=== PATIENT | female | born 1990 | race American Indian/Alaskan Native ===

== ENCOUNTER 2017-12-28 12:25 | Observation (INO) | payer MEDICAID, OTHER ==
[2017-12-28 14:46] LABS: Basophils # (Auto) 0.1 K/mm3 (0.0-0.1); Basophils % (Auto) 0.6 % (0.0-1.8); Eosinophils # (Auto) 0.2 K/mm3 (0.0-0.4); Eosinophils % (Auto) 1.6 % (0.0-4.3); Hematocrit 37.2 % (30.3-42.9); Hemoglobin 11.9 gm/dl (10.1-14.3); Lymphocytes # (Auto) 2.9 K/mm3 (1.2-5.4); Lymphocytes % (Auto) 30.8 % (13.4-35.0); Mean Corpuscular HGB Conc 32 % (30-34); Mean Corpuscular Hemoglobin 27 pg (28-32); Mean Corpuscular Volume 85 fl (79-97); Monocytes # (Auto) 0.7 K/mm3 (0.0-0.8); Monocytes % (Auto) 7.2 % (0.0-7.3); Platelet Count 245 K/mm3 (140-440); Red Blood Count 4.39 M/mm3 (3.65-5.03); Red Cell Distribution Width 14.6 % (13.2-15.2)
[2017-12-28] MEDS ORDERED: METHOTREXATE IM ONE (15:00)
[2017-12-28 15:10] LABS: Alanine Aminotransferase 23 units/L (7-56); BUN/Creatinine Ratio 12; Blood Urea Nitrogen 7 mg/dL (7-17); Calcium 9.3 mg/dL (8.4-10.2); Hemolysis Index 23
[2017-12-28 16:55] VITALS: BP 117/61
--- NOTE | 2017-12-28 16:56 | Short Stay Summary ---
Short Stay Documentation Date of service: 12/28/17 Narrative H&P: Patient was admitted for Methotrexate therapy d/t (L) ectopic LMP (date): 11/04/2017 Past Medical History: Negative Past Medical History Past Surgical History: x 2 Current Allergies: No known allergies Infection History HIV Risk Eval: no Hep B Immunized: no TB exposure: no Personal hx. of genital herpes: no Partner hx. of genital herpes: no Rash/viral illness since LMP: no Hx of STD: chlamydia Social Hx: Patient is single no e/t/d Smoking History: Patient has never smoked. - History Principal diagnosis: (L) ectopic - Allergies and Medications Current Medications: Allergies No Known Allergies Allergy (Verified 12/03/14 12:58) Home Medications Medication Instructions Recorded Confirmed Last Taken Type Vit 90/Iron Fum/Folic 1 each PO QDAY 10/12/13 04/18/14 04/16/14 History [ Formula] Acetaminophen [Acetaminophen TAB] 1,000 mg PO Q6HR 01/25/14 04/18/14 01/22/14 15 :00 History 1000 Cephalexin [Keflex] 250 mg PO Q6H #28 capsule 04/22/14 Unknown Rx Ondansetron [Zofran ODT TAB] 4 mg PO Q6H #14 tab.rapdis 08/19/14 Unknown Rx Meclizine [Antivert] 25 mg PO TID PRN #30 tablet 12/03/14 Unknown Rx Prednisone [predniSONE 5 mg (6-Day 5 mg PO .TAPER #1 tab.ds.pk 12/03/14 Unknown Rx Pack, 21 Tabs)] Cyclobenzaprine [Flexeril] 10 mg PO TID PRN #30 tablet 08/30/16 Unknown Rx Ibuprofen [Motrin 800 MG tab] 800 mg PO TID PRN #30 tablet 08/30/16 Unknown Rx - Disposition Condition at discharge: Good Disposition: DC-01 TO HOME OR SELFCARE - Discharge Diagnoses (1) Ectopic Status: Acute Qualifiers: Location of ectopic : tubal Intrauterine status: without intrauterine Laterality: left Qualified Code(s): O00.102 - Left tubal without intrauterine Short Stay Discharge Plan Activity: other (No sex, no driving, stay at your home, have an adult available at all times who can drive you to the hospital ) Weight Bearing Status: Weight Bear as Tolerated Diet: regular (Do not take PNV) Additional Instructions: Return to [facility] on Monday12/31/2017 for QBHCG Follow up with: PILI FOY MD [Staff Physician] - 01/01/18 9:00 am ([place])
== END 2017-12-28 17:35 | disposition home or self-care (01) ==
LOC: UNDOADMOB 12:25 → 3A 12:25 → OB 13:15
PROVIDERS: ADMIT Obstetrics & Gynecology; ATTEND Obstetrics & Gynecology
DX: O00.102 Left tubal pregnancy without intrauterine pregnancy (principal); O34.219 Maternal care for unspecified type scar from previous cesarean delivery; O99.213 Obesity complicating pregnancy, third trimester; E66.9 Obesity, unspecified; Z68.42 Body mass index [BMI] 45.0-49.9, adult; Z3A.39 39 weeks gestation of pregnancy
CPT/HCPCS: 36415; 80053; 84702; 85025; 86850; 86900; 86901; 96372; G0378; G0379; J9260

== ENCOUNTER 2017-12-31 14:27 | Emergency (ER) | payer MEDICAID ==
[2017-12-31 14:36] VITALS: BP 132/82
--- NOTE | 2017-12-31 14:48 | Emergency Department Report ---
ED General Adult HPI - General Chief complaint: Medical Clearance Stated complaint: BLOODWORK Time Seen by Provider: 12/31/17 14:38 Source: patient Mode of arrival: Ambulatory Limitations: No Limitations - History of Present Illness Initial comments: Patient is 27 years old female with recent diagnosis of ectopic . Patient was seen by Dr. Mauricio and advised to follow up in 2 days for repeat hCG level. Patient had methotrexate injection [address] Mauricio office. Chin today denying any new symptoms specifically she denied any abdominal pain, vaginal bleeding, dizziness, shortness of breath, nausea or vomiting. - Related Data Home Medications Medication Instructions Recorded Confirmed Last Taken Vit 90/Iron Fum/Folic 1 each PO QDAY 10/12/13 04/18/14 04/16/14 [ Formula] Acetaminophen [Acetaminophen TAB] 1,000 mg PO Q6HR 01/25/14 04/18/14 01/22/14 15 :00 1000 Previous Rx's Medication Instructions Recorded Last Taken Type Cephalexin [Keflex] 250 mg PO Q6H #28 capsule 04/22/14 Unknown Rx Ondansetron [Zofran ODT TAB] 4 mg PO Q6H #14 tab.rapdis 08/19/14 Unknown Rx Meclizine [Antivert] 25 mg PO TID PRN #30 tablet 12/03/14 Unknown Rx Prednisone [predniSONE 5 mg (6-Day 5 mg PO .TAPER #1 tab.ds.pk 12/03/14 Unknown Rx Pack, 21 Tabs)] Cyclobenzaprine [Flexeril] 10 mg PO TID PRN #30 tablet 08/30/16 Unknown Rx Ibuprofen [Motrin 800 MG tab] 800 mg PO TID PRN #30 tablet 08/30/16 Unknown Rx Allergies Allergy/AdvReac Type Severity Reaction Status Date / Time No Known Allergies Allergy Verified 12/03/14 12:58 ED Review of Systems ROS: Stated complaint: BLOODWORK Other details as noted in HPI Comment: All other systems reviewed and negative Constitutional: denies: chills Respiratory: denies: cough, orthopnea, shortness of breath, SOB with exertion Cardiovascular: denies: chest pain, palpitations, dyspnea on exertion Gastrointestinal: denies: abdominal pain, nausea, vomiting, diarrhea Neurological: denies: headache, weakness, numbness ED Past Medical Hx - Past Medical History Hx Hypertension: No Hx Congestive Heart Failure: No Hx Diabetes: No Hx Deep Vein Thrombosis: No Hx GERD: No Hx Renal Disease: No Hx Sickle Cell Disease: No Hx Seizures: No Hx Asthma: No Hx COPD: No Hx HIV: No - Surgical History Additional Surgical History: csection x 2 - Social History Smoking Status: Never Smoker Substance Use Type: None - Medications Home Medications: Home Medications Medication Instructions Recorded Confirmed Last Taken Type Vit 90/Iron Fum/Folic 1 each PO QDAY 10/12/13 04/18/14 04/16/14 History [ Formula] Acetaminophen [Acetaminophen TAB] 1,000 mg PO Q6HR 01/25/14 04/18/14 01/22/14 15 :00 History 1000 Cephalexin [Keflex] 250 mg PO Q6H #28 capsule 04/22/14 Unknown Rx Ondansetron [Zofran ODT TAB] 4 mg PO Q6H #14 tab.rapdis 08/19/14 Unknown Rx Meclizine [Antivert] 25 mg PO TID PRN #30 tablet 12/03/14 Unknown Rx Prednisone [predniSONE 5 mg (6-Day 5 mg PO .TAPER #1 tab.ds.pk 12/03/14 Unknown Rx Pack, 21 Tabs)] Cyclobenzaprine [Flexeril] 10 mg PO TID PRN #30 tablet 08/30/16 Unknown Rx Ibuprofen [Motrin 800 MG tab] 800 mg PO TID PRN #30 tablet 08/30/16 Unknown Rx ED Physical Exam - General Limitations: No Limitations General appearance: alert, in no apparent distress - Head Head exam: Present: atraumatic, normocephalic, normal inspection - Eye Eye exam: Present: normal appearance, PERRL - ENT ENT exam: Present: normal exam, normal orophraynx, mucous membranes moist - Neck Neck exam: Present: normal inspection, full ROM. Absent: tenderness, meningismus - Respiratory Respiratory exam: Present: normal lung sounds bilaterally. Absent: respiratory distress, wheezes, rales, rhonchi - Cardiovascular Cardiovascular Exam: Present: regular rate, normal heart sounds. Absent: normal rhythm, bradycardia, tachycardia - GI/Abdominal GI/Abdominal exam: Present: soft, normal bowel sounds. Absent: distended, tenderness, guarding, rebound, rigid, organomegaly, mass, bruit, pulsatile mass - Extremities Exam Extremities exam: Present: normal inspection, full ROM, normal capillary refill - Back Exam Back exam: Present: normal inspection, full ROM. Absent: tenderness, CVA tenderness (R), CVA tenderness (L), muscle spasm, paraspinal tenderness, vertebral tenderness - Neurological Exam Neurological exam: Present: alert, oriented X3, CN II-XII intact, normal gait - Skin Skin exam: Present: warm, intact, normal color ED Course Vital Signs 12/31/17 14:34 Temperature 98.7 F Pulse Rate 96 H Respiratory 16 Rate Blood Pressure 132/82 O2 Sat by Pulse 99 Oximetry ED Medical Decision Making - Medical Decision Making I discussed the patient is Dr. Mauricio, Dr. Mauricio stated that patient can go home and follow-up as Dr. Abbasi tomorrow as a schedule. Critical care attestation.: If time is entered above; I have spent that time in minutes in the direct care of this critically ill patient, excluding procedure time. ED Disposition Clinical Impression: Ectopic Disposition: DC-01 TO HOME OR SELFCARE Is pt being admited?: No Condition: Stable Instructions: Ectopic (ED)
== END 2017-12-31 15:45 | disposition home or self-care (01) ==
LOC: ED 14:27
DX: O00.90 Unspecified ectopic pregnancy without intrauterine pregnancy (principal); Z3A.00 Weeks of gestation of pregnancy not specified
CPT/HCPCS: 36415; 84702

== ENCOUNTER 2018-01-03 12:14 | Outpatient (CLI) | payer MEDICAID | END 2018-01-03 12:15 | disposition home or self-care (01) | LOC: LAB 12:14 | PROVIDERS: ATTEND Obstetrics & Gynecology | DX: N92.6 Irregular menstruation, unspecified (principal) | CPT/HCPCS: 36415; 84702 ==

== ENCOUNTER 2018-01-15 12:30 | Emergency (ER) | payer MEDICAID ==
[2018-01-15 13:26] LABS: Basophils # (Auto) 0.1 K/mm3 (0.0-0.1); Basophils % (Auto) 0.9 % (0.0-1.8); Eosinophils # (Auto) 0.2 K/mm3 (0.0-0.4); Eosinophils % (Auto) 2.3 % (0.0-4.3); Hematocrit 36.8 % (30.3-42.9); Hemoglobin 12.1 gm/dl (10.1-14.3); Lymphocytes # (Auto) 2.3 K/mm3 (1.2-5.4); Lymphocytes % (Auto) 26.4 % (13.4-35.0); Mean Corpuscular HGB Conc 33 % (30-34); Mean Corpuscular Hemoglobin 27 pg (28-32); Mean Corpuscular Volume 84 fl (79-97); Monocytes # (Auto) 0.6 K/mm3 (0.0-0.8); Monocytes % (Auto) 7.2 % (0.0-7.3); Platelet Count 310 K/mm3 (140-440); Red Cell Distribution Width 14.8 % (13.2-15.2)
[2018-01-15 13:58] LABS: Alanine Aminotransferase 19 units/L (7-56); Albumin 3.7 g/dL (3.9-5); BUN/Creatinine Ratio 14; Blood Urea Nitrogen 7 mg/dL (7-17); Hemolysis Index 3
--- NOTE | 2018-01-15 14:10 | Ultrasound Report ---
ULTRASOUND OB LESS THAN 14 WEEKS ULTRASOUND OB TRANSVAGINAL HISTORY: Abdominal pain during , history of ectopic and methotrexate treatment. COMPARISON: No relevant comparison. TECHNIQUE: Transabdominal and transvaginal ultrasound with color doppler interrogation. FINDINGS: History of ectopic at an outlying facility is given. No radiographic confirmation is presented. The uterus measures 11 x 7 x 7 cm. The endometrial stripe measures 11 mm. The right ovary is within normal limits. A small gestational sac containing a pole and yolk sac is identified in the left adnexal region. This may be within the left fallopian tube filled. No heart rate is detected. Estimated age on ultrasound is 7 weeks, 1 day. Small fluid containing debris is noted in the cul-de-sac. IMPRESSION: Left adnexal ectopic without cardiac activity is identified.
[2018-01-15 16:17] LABS: Bilirubin,Urine NEG (Negative); Blood,Urine NEG (Negative); Mucus,Urine 3+ /HPF
--- NOTE | 2018-01-15 16:17 | Emergency Department Report ---
ED Female HPI - General Chief complaint: Abdominal Pain Stated complaint: BACK/ABDOMINAL PAIN Time Seen by Provider: 01/15/18 14:10 Source: patient Mode of arrival: Ambulatory Limitations: No Limitations - History of Present Illness Initial comments: This is a 27-year-old with a recently diagnosed ectopic that has been treated with methotrexate 2 weeks ago who states that last night she was in her usual state of health without any complaints and sneezed suddenly. She reports that she then began to feel pain in her lower abdomen. She denies any nausea vomiting diarrhea chest pain or fever. She states that it felt like she was going into labor. She tried to have a bowel movement but was unsuccessful. She states that her last bowel movement has been roughly 3 days ago. She admits that she might be constipated. She is also concerned about the ectopic . Her quantitative hCG has been trending downwards according to her. She was offered surgery to resolve the ectopic but decided with her COREMAKER that she would talk to not do this at this time. She states that the pain is worse with movement. When she is laying still the pain in her lower abdomen is much better. She denies any kind of discharge at this time. -: Sudden, days(s) (1) Radiation: non-radiating Severity: moderate Severity scale (0 -10): 8 Quality: sharp Consistency: intermittent Improves with: other (rest) Worsens with: movement Are you Now?: Yes (ectopic) Associated Symptoms: denies other symptoms - Related Data Sexually active: Yes Home Medications Medication Instructions Recorded Confirmed Last Taken Vit 90/Iron Fum/Folic 1 each PO QDAY 10/12/13 04/18/14 04/16/14 [ Formula] Acetaminophen [Acetaminophen TAB] 1,000 mg PO Q6HR 01/25/14 04/18/14 01/22/14 15 :00 1000 Previous Rx's Medication Instructions Recorded Last Taken Type Cephalexin [Keflex] 250 mg PO Q6H #28 capsule 04/22/14 Unknown Rx Ondansetron [Zofran ODT TAB] 4 mg PO Q6H #14 tab.rapdis 08/19/14 Unknown Rx Meclizine [Antivert] 25 mg PO TID PRN #30 tablet 12/03/14 Unknown Rx Prednisone [predniSONE 5 mg (6-Day 5 mg PO .TAPER #1 tab.ds.pk 12/03/14 Unknown Rx Pack, 21 Tabs)] Cyclobenzaprine [Flexeril] 10 mg PO TID PRN #30 tablet 08/30/16 Unknown Rx Ibuprofen [Motrin 800 MG tab] 800 mg PO TID PRN #30 tablet 08/30/16 Unknown Rx HYDROcodone/ACETAMINOPHEN [[place] 1 each PO TID #10 tablet 01/15/18 Unknown Rx 5-325 Tablet] Allergies Allergy/AdvReac Type Severity Reaction Status Date / Time No Known Allergies Allergy Verified 12/03/14 12:58 ED Review of Systems ROS: Stated complaint: BACK/ABDOMINAL PAIN Other details as noted in HPI Comment: All other systems reviewed and negative Constitutional: see HPI Eyes: as per HPI ENT: as per HPI Respiratory: see HPI Cardiovascular: as per HPI Endocrine: see HPI Gastrointestinal: as per HPI Genitourinary: as per HPI Musculoskeletal: as per HPI Skin: as per HPI Neurological: as per HPI Psychiatric: as per HPI Hematological/Lymphatic: as per HPI ED Past Medical Hx - Past Medical History Hx Hypertension: No Hx Congestive Heart Failure: No Hx Diabetes: No Hx Deep Vein Thrombosis: No Hx GERD: No Hx Renal Disease: No Hx Sickle Cell Disease: No Hx Seizures: No Hx Asthma: No Hx COPD: No Hx HIV: No - Surgical History Hx Cholecystectomy: Yes Additional Surgical History: csection x 2 - Social History Smoking Status: Current Every Day Smoker Substance Use Type: None - Medications Home Medications: Home Medications Medication Instructions Recorded Confirmed Last Taken Type Vit 90/Iron Fum/Folic 1 each PO QDAY 10/12/13 04/18/14 04/16/14 History [ Formula] Acetaminophen [Acetaminophen TAB] 1,000 mg PO Q6HR 01/25/14 04/18/14 01/22/14 15 :00 History 1000 Cephalexin [Keflex] 250 mg PO Q6H #28 capsule 04/22/14 Unknown Rx Ondansetron [Zofran ODT TAB] 4 mg PO Q6H #14 tab.rapdis 08/19/14 Unknown Rx Meclizine [Antivert] 25 mg PO TID PRN #30 tablet 12/03/14 Unknown Rx Prednisone [predniSONE 5 mg (6-Day 5 mg PO .TAPER #1 tab.ds.pk 12/03/14 Unknown Rx Pack, 21 Tabs)] Cyclobenzaprine [Flexeril] 10 mg PO TID PRN #30 tablet 08/30/16 Unknown Rx Ibuprofen [Motrin 800 MG tab] 800 mg PO TID PRN #30 tablet 08/30/16 Unknown Rx HYDROcodone/ACETAMINOPHEN [[place] 1 each PO TID #10 tablet 01/15/18 Unknown Rx 5-325 Tablet] ED Physical Exam - General Limitations: No Limitations General appearance: alert, in no apparent distress - Head Head exam: Present: atraumatic, normal inspection - Eye Eye exam: Present: normal appearance, PERRL, EOMI - ENT ENT exam: Present: normal exam, normal orophraynx - Neck Neck exam: Present: normal inspection - Respiratory Respiratory exam: Present: normal lung sounds bilaterally. Absent: respiratory distress, wheezes, rales, rhonchi - Cardiovascular Cardiovascular Exam: Present: regular rate, normal rhythm, normal heart sounds - GI/Abdominal GI/Abdominal exam: Present: soft, tenderness (non-specific to the lower quadrants to palpation), normal bowel sounds. Absent: distended, guarding - Rectal Rectal exam: Present: deferred - Extremities Exam Extremities exam: Present: normal inspection, full ROM - Back Exam Back exam: Present: normal inspection, full ROM - Neurological Exam Neurological exam: Present: alert, oriented X3, CN II-XII intact - Psychiatric Psychiatric exam: Present: normal affect, normal mood - Skin Skin exam: Present: warm, dry, intact, normal color ED Course Vital Signs 01/15/18 01/15/18 12:33 12:47 Temperature 98.4 F Pulse Rate 95 H Respiratory 16 Rate Blood Pressure 118/74 O2 Sat by Pulse 99 100 Oximetry - Reevaluation(s) Reevaluation #1: 01/15/18 16:30 Dicussed the case with her OBGYN doctor, who did see her in clinic and wanted her sent over for further evaluation. Dr. Reyna. US was done and reveals a gestational sac without any heart sounds. Quantitative HCG has been decreasing over time. 01/15/18 17:41 Discussed the quantitative hCG with the patient. It is less than 1000. We will go ahead and discharge the patient with follow-up with her COREMAKER doctor. She expresses understanding. She does request something for pain. I will go ahead and give her only 10 of [place] 5. I advised her that this may not completely relieve her pain. She expresses understanding. ED Medical Decision Making - Lab Data Result diagrams: 01/15/18 12:56 01/15/18 12:56 Critical care attestation.: If time is entered above; I have spent that time in minutes in the direct care of this critically ill patient, excluding procedure time. ED Disposition Clinical Impression: Ectopic Qualifiers: Location of ectopic : ovarian Intrauterine status: without intrauterine Laterality: left Qualified Code(s): O00.202 - Left ovarian without intrauterine Disposition: DC-01 TO HOME OR SELFCARE Is pt being admited?: No Does the pt Need Aspirin: No Condition: Stable Instructions: Abdominal Pain (ED) Additional Instructions: Rest, fluids, follow up with her DOOR PERSON doctor, return as needed, take medications as directed. If you think you're having a life threatening emergency , call 911. Prescriptions: HYDROcodone/ACETAMINOPHEN [[place] 5-325 Tablet] 1 each PO TID #10 tablet Referrals: PRIMARY CARE,MD [Primary Care Provider] - 3-5 Days
[2018-01-15 16:20] LABS: Color,Urine Yellow (Yellow)
[2018-01-15 18:07] VITALS: BP 122/56
== END 2018-01-15 18:07 | disposition home or self-care (01) ==
LOC: ED 12:30
DX: O00.202 Left ovarian pregnancy without intrauterine pregnancy (principal); F17.200 Nicotine dependence, unspecified, uncomplicated; Z3A.00 Weeks of gestation of pregnancy not specified
CPT/HCPCS: 36415; 76801; 76817; 80053; 81001; 84702; 84703; 85025

== ENCOUNTER 2018-12-10 05:37 | Inpatient (IN) | payer MEDICAID ==
--- NOTE | 2018-12-07 17:40 | History and Physical Report ---
History of Present Illness Date of examination: 12/07/18 History of present illness: Patient admitted for repeat section. Patient informed the risks of the surgery include bleeding possibly bleeding heavy enough to require blood transfusion, infection possible damage to bowel bladder ureter. Patient understands that due to her previous surgery she is an increased risks of adjacent organ damage. Patient's questions answered. Patient understands and desires to proceed. Menstrual History Regularity: regular Menses every: 28 days Duration: 4 LMP: 03/11/2018 LMP reliability: definite LMP character: normal test type: urine test Date: 04/23/2018 EDC Calculations LMP: 12/16/2018 EDC Confirmation: 12/16/2018 Past History : 4 Term Births: 2 Premature Births: 0 Living Children: 2 Para: 1 Mult. Births: 0 Prev : 2 Aborta: 0 Elect. Ab: 0 Spont. Ab: 0 Ectopics: 1 # 1 Delivery date: 2008 Weeks Gestation: FT Delivery type: Delivery location: [facility] Infant Sex: Female weight: 6-12 Comments: NRFHT # 2 Delivery date: 04/18/2014 Weeks Gestation: 39 Delivery type: Delivery location: [facility] Infant Sex: female weight: 6.69 Comments: prev c/s # 3 Delivery date: 12/28/2017 Delivery type: ectopic Past Medical History: Negative Past Medical History Past Medical History Abnormal PAP: negative PHUC Exposure: negative Infertility: negative Uterine Anomaly: negative Uterine Surgery (not C/S): negative Other Gynecologic Problems: negative Social Hx: Patient is single no e/t/d Smoking History: Patient has never smoked. Infection History Hx of STD: chlamydia HIV Risk Eval: low risk Hepatitis B Risk Eval: low risk Personal hx. of genital herpes: no Partner hx. of genital herpes: no Rash, Viral, or Febrile illness since last LMP? no Varicella/Chicken Pox Status: Previous Disease TB Risk: no Genetic History Congenital Heart Defect: Mom: no Dad: no Jeanne Disease: Mom: no Dad: no Thalassemia Mom: no Dad: no Neural Tube Defect Mom: no Dad: no Down's Syndrome Mom: no Dad: no Shaquille-Sachs Mom: no Dad: no Sickle Cell Disease/Trait Mom: no Dad: no Hemophilia Mom: no Dad: no Muscular Dystrophy Mom: no Dad: no Cystic Fibrosis Mom: no Dad: no Regina Chorea Mom: no Dad: no Mental Retardation Mom: no Dad: no Fragile X Mom: no Dad: no Other Genetic/Chromosomal Disorder Mom: no Dad: no Child w/other defect Mom: no Dad: no Enviromental Exposures Xray Exposure: no Medication, drug, or alcohol use since LMP: no Chemical/Other Exposure: no Exposure to Cat Liter: no Hx of Parvovirus (Fifth Disease): no Occupational Exposure to Children: none Active Medications (reviewed today): TYLENOL TABS () Current Allergies (reviewed today): No known allergies Past History - Obstetrical History Expected Date of Delivery: 12/16/18 Actual Gestation: 39 Week(s) 1 Day(s) : 4 Para: 2 Hx # Term Pregnancies: 2 Number of Pregnancies: 0 Spontaneous Abortions: 1 (Ectopic) Induced : 0 Number of Living Children: 1 Medications and Allergies Allergies Allergy/AdvReac Type Severity Reaction Status Date / Time No Known Allergies Allergy Verified 12/03/14 12:58 Home Medications Medication Instructions Recorded Confirmed Last Taken Type Vit 90/Iron Fum/Folic 1 each PO QDAY 10/12/13 04/18/14 04/16/14 History [ Formula] Acetaminophen [Acetaminophen TAB] 1,000 mg PO Q6HR 01/25/14 04/18/14 01/22/14 15:00 History 1000 cephALEXin [Keflex] 250 mg PO Q6H #28 capsule 04/22/14 Unknown Rx Ondansetron [Zofran ODT TAB] 4 mg PO Q6H #14 tab.rapdis 08/19/14 Unknown Rx Meclizine [Antivert] 25 mg PO TID PRN #30 tablet 12/03/14 Unknown Rx Prednisone [predniSONE 5 mg (6-Day 5 mg PO .TAPER #1 tab.ds.pk 12/03/14 Unknown Rx Pack, 21 Tabs)] Cyclobenzaprine [Flexeril] 10 mg PO TID PRN #30 tablet 08/30/16 Unknown Rx Ibuprofen [Motrin 800 MG tab] 800 mg PO TID PRN #30 tablet 08/30/16 Unknown Rx HYDROcodone/ACETAMINOPHEN [[place] 1 each PO TID #10 tablet 01/15/18 Unknown Rx 5-325 Tablet] - Physical Exam Breasts: Positive: deferred Cardiovascular: Regular rate Lungs: Positive: Normal air movement Abdomen: Positive: normal appearance, soft Genitourinary (Female): Positive: normal external genitalia Uterus: Positive: enlarged Extremities: Positive: edema Results Result Diagrams: 12/10/18 06:36 All other labs normal. Assessment and Plan - Patient Problems (1) 39 weeks gestation of Current Visit: No Status: Acute (2) Obesity Current Visit: No Status: Acute Qualifiers: Obesity type: due to excess calories Obesity classification: adult class 3 (BMI >= 40) Serious obesity comorbidity presence: without serious comorbidity (3) Previous delivery affecting Current Visit: No Status: Acute Plan to address problem: Discuss the risks of the surgery including infection, bleeding possibly heavy enough to require a blood transfusion, possible damage to bowel, bladder or ureter. Her questions were answered. Patient understands and desires to proceed.
[~2018-12-10 05:37] MED LIST: PITOCin/NS 20 UNIT/1000ML DRIP 20 UNITS/1,000 ML BAG IV SCH; REGLAN IV ONE
[2018-12-10] MEDS ORDERED: LACTATED RINGERS 1,000 ML IV SCH (06:00)
[2018-12-10 06:57] LABS: Basophils # (Auto) 0.1 K/mm3 (0.0-0.1); Basophils % (Auto) 0.5 % (0.0-1.8); Eosinophils # (Auto) 0.1 K/mm3 (0.0-0.4); Eosinophils % (Auto) 0.6 % (0.0-4.3); Hematocrit 35.1 % (30.3-42.9); Hemoglobin 11.8 gm/dl (10.1-14.3); Lymphocytes # (Auto) 2.4 K/mm3 (1.2-5.4); Lymphocytes % (Auto) 19.8 % (13.4-35.0); Mean Corpuscular HGB Conc 34 % (30-34); Mean Corpuscular Volume 85 fl (79-97); Monocytes # (Auto) 0.9 K/mm3 (0.0-0.8); Monocytes % (Auto) 7.3 % (0.0-7.3); Platelet Count 229 K/mm3 (140-440); Red Blood Count 4.11 M/mm3 (3.65-5.03); Red Cell Distribution Width 14.8 % (13.2-15.2)
[2018-12-10] MEDS ORDERED: ceFAZolin 3 GM in NACL 0.9% 100 ML IV NR (07:00)
[2018-12-10] MEDS ORDERED: BICITRA PO ONE (07:00)
[2018-12-10] MEDS ORDERED: PEPCID IV ONE (07:05)
[2018-12-10] MEDS ORDERED: REGLAN ONE (07:11)
[2018-12-10] MEDS ORDERED: SUBLIMAZE ONE (07:24)
[2018-12-10] MEDS ORDERED: TORADOL ONE (08:08)
[2018-12-10] MEDS ORDERED: NEO SYNEPHRINE ONE (08:08)
[2018-12-10] MEDS ORDERED: ROBINUL ONE (08:08)
--- NOTE | 2018-12-10 08:52 | Operative Report ---
Operative Report Operative Report: Date of procedure: 12/10/2018 Pre-operative diagnosis: Intrauterine at 39 weeks with 2 previous secti ons and morbidly obese Post-operative diagnosis: Same Procedure name(s): Repeat low transverse section Surgeon: Clemente Gama MD Registered Nurse Bone Marrow Transplant: Clover Olsen, certified nurse children's book author Anesthesia: Spinal EBL: 800 mL Complications: None Findings: Patient with a large uterus with filmy adhesions on anterior abdominal wall and uterus. Normal tubes and ovaries bilaterally. Thin lower uterine segment. Female infant weight 7 lbs. 0 oz. Apgars 8 at 1 minute and 9 at 5 minutes Specimen(s): None Procedure: The patient was brought to the operating room. A spinal was placed without any complications. She was then placed in left lateral tilt. Prepped and draped in the usual sterile manner. After testing for adequate anesthesia level, a Pfannenstiel incision was made through her previous scar. This incision was taken down to the fascia. The fascia was then nicked in the midline. This incision was extended out laterally with Larios scissors. The fascia was then sharply and bluntly from the underlying rectus muscles. The rectus muscles were bluntly and sharply . The peritoneum was then entered with the videotape operator's fingers. This incision was spread vertically with care not to damage the bladder below. The bladder flap was then formed sharply and bluntly with Metzenbaum scissors. Bladder blade was placed. A transverse incision was made in lower uterine segment. This incision was extended laterally with the operators fingers. The amniotic sac was then entered bluntly with the videotape operator's fingers. The was delivered from the vertex position. Bulb suction on the mother's abdomen. Cord was double clamped and cut. The infant was then passed to the nursery personnel who were in attendance. The above scores were given by the nursery personnel. The placenta was then bluntly removed. The uterus was then externalized and wiped clean the remaining products. The uterine incision was closed in layers. The first incision was closed in a locking manner using 0 Vicryl. This was followed by imbricating stitch also with 0 Vicryl. This closure was hemostatic. The bladder flap was copiously irrigated and found to be hemostatic. The pelvis was copiously irrigated and found to be hemostatic. The uterus was then placed back to the patient's abdomen. The retractors were removed. The rectus muscles were inspected and found to be hemostatic. The fascia was then closed in a running manner using 0 Vicryl. This incision was hemostatic irrigation Bovie. The skin was reapproximated with 4-0 Vicryl subcuticularly. The patient tolerated procedure well. Her urine was clear. The infant was admitted to the [well baby] nursery. The patient was accompanied to recovery room in good condition. Instrument count correct 3
--- NOTE | 2018-12-10 08:59 | Anesthesia Day of Surgery ---
Anesthesia Day of Surgery - Day of Surgery Patient Examined: Yes Patient H&P Reviewed: Yes Patient is NPO: Yes Beta Blockers: No Cardiac Clearance: No Pulmonary Clearance: No Zoltan's Test: N/A
--- NOTE | 2018-12-10 08:59 | Post Anesthesia Evaluation ---
- Post Anesthesia Evaluation Patient Participated: Yes Airway Patent: Yes Stable Respiratory Function: Yes Nausea/Vomiting: No Temp > 96.8F: Yes Pain Manageable: Yes Adequeate Hydration: Yes Anesthesia Complications: No Block Receding Appropriately: Yes Patient on Ventilator: No
--- NOTE | 2018-12-10 08:59 | Anesthesia Consultation ---
Anesthesia Consult and Med Hx Date of service: 12/10/18 - Airway Anesthetic Teeth Evaluation: Good ROM Head & Neck: Adequate Mental/Hyoid Distance: Adequate Mallampati Class: Class II Intubation Access Assessment: Probably Good - Pulmonary Exam CTA: Yes - Cardiac Exam Cardiac Exam: RRR - Pre-Operative Health Status ASA Pre-Surgery Classification: ASA3 Proposed Anesthetic Plan: Spinal - Pulmonary Hx Smoking: Yes (not for last 05/16) Hx Asthma: No Hx Respiratory Symptoms: No SOB: No COPD: No Home Oxygen Therapy: No Hx Pneumonia: No Hx Sleep Apnea: No - Cardiovascular System Hx Hypertension: No Hx Coronary Artery Disease: No Hx Heart Attack/AMI: No Hx Angina: No Hx Percutaneous Transluminal Coronary Angioplasty (PTCA): No Hx Cardia Arrhythmia: No Hx Pacemaker: No Hx Internal Defibrillator: No Hx Valvular Heart Disease: No Hx Heart Murmur: No Hx Peripheral Vascular Disease: No - Central Nervous System Hx Neuromuscular Disorder: No Hx Seizures: No CVA: No Hx Back Pain: No Hx Psychiatric Problems: No - Gastrointestinal Hx Ulcer: No Hx Gastroesophageal Reflux Disease: No - Endocrine Hx Renal Disease: No Hx End Stage Renal Disease: No Hx Cirrhosis: No Hx Liver Disease: No Hx Insulin Dependent Diabetes: No Hx Non-Insulin Dependent Diabetes: No Hx Thyroid Disease: No Hx Hypothyroidism: No Hx Hyperthyroidism: No - Hematic Hx Anemia: No Hx Sickle Cell Disease: No - Other Systems Hx Alcohol Use: No Hx Substance Use: No Hx Cancer: No Hx Obesity: Yes
[2018-12-10] MEDS ORDERED: NARCAN 0.4 MG/1 ML IV PRN ×2 (09:00→09:43)
[2018-12-10] MEDS ORDERED: PHENERGAN PO PRN (09:00)
[2018-12-10] MEDS ORDERED: DILAUDID IV PRN (09:00)
[2018-12-10] MEDS ORDERED: PHENERGAN PR PRN (09:00)
[2018-12-10] MEDS ORDERED: LANSINOH TP PRN (09:43)
[2018-12-10] MEDS ORDERED: MYLICON PO PRN (09:43)
[2018-12-10] MEDS ORDERED: SODIUM CHLORIDE FLUSH SYRINGE 10 ML IV NR (09:43)
[2018-12-10] MEDS ORDERED: TUCKS PAD TP PRN (09:43)
[2018-12-10] MEDS ORDERED: MILK OF MAGNESIA PO PRN (09:43)
[2018-12-10] MEDS ORDERED: PITOCin/NS 20 UNIT/1000ML DRIP 20 UNITS/1,000 ML BAG IV SCH (09:43)
[2018-12-10] MEDS ORDERED: ANUCORT-HC PR PRN (09:43)
[2018-12-10] MEDS ORDERED: TORADOL IV PRN (09:43)
[2018-12-10] MEDS ORDERED: IBUPROFEN PO PRN (09:43)
[2018-12-10] MEDS: D5LR 1,000 ML IV SCH ×2 (10:34→18:35)
[2018-12-10] MEDS: TORADOL IV SCH ×2 (14:15→20:49)
[2018-12-10] MEDS: ANCEF/NS 1 GM/50 ML 1 GM/50 ML BAG IV SCH ×2 (14:29→22:46)
[2018-12-10] MEDS: NORCO 5/325 PO PRN (16:55)
[2018-12-10 20:31] LABS: Hematocrit 32.7 % (30.3-42.9); Hemoglobin 10.7 gm/dl (10.1-14.3)
[2018-12-11] MEDS: TRIPLE ANTIBIOTIC TP SCH ×2 (00:51→01:04)
[2018-12-11] MEDS: TORADOL IV SCH ×3 (01:58→13:49)
[2018-12-11] MEDS ORDERED: BOOSTRIX IM ONE (06:00)
--- NOTE | 2018-12-11 08:06 | Progress Note ---
Assessment and Plan patient doing well, ambulating around room. reports + flatus and BM this morning. Lochia scant, fundus firm, H&H 10.7/32.7, VSSAF (b/p 108-138/60-70's). Will continue to monitor, continue postop pathway. - Patient Problems (1) delivery delivered Current Visit: No Status: Acute Subjective - Subjective Date of service: 12/11/18 Principal diagnosis: postop day #1 s/p repeat c/s Patient reports: appetite normal, voiding normally, pain well controlled, flatus, bowel movement, ambulating normally, no dizzy ambulation, no nauseated [place]: doing well, nursing well, bottle feeding Objective - Vital Signs Latest vital signs: Vital Signs Temp Pulse Resp BP BP Pulse Ox 12/11/18 00:08 98.7 F 95 H 16 137/70 98 12/10/18 20:49 98.7 F 102 H 16 138/72 94 12/10/18 15:45 98.4 F 87 24 125/74 98 12/10/18 12:23 98.3 F 103 H 24 108/66 95 12/10/18 10:20 97.8 F 79 131/83 12/10/18 10:00 97.8 F 12/10/18 09:45 84 16 109/62 99 12/10/18 09:30 93 H 15 111/62 100 12/10/18 09:15 90 13 107/57 12/10/18 09:10 88 16 119/63 12/10/18 09:05 100 H 16 117/70 12/10/18 09:00 96 H 15 92/55 12/10/18 08:55 86 16 123/67 12/10/18 08:53 98.2 F 94 H 16 102/64 Intake and Output 12/10/18 12/11/18 12/11/18 23:59 07:59 15:59 Intake Total 1000 Output Total 400 1400 Balance 600 -1400 Intake: IV 1000 D5lr 1,000 ml @ 125 mls/ 1000 hr IV DIRECT AARON Rx#: [id number] Output: Urine 400 1400 Indwelling Catheter 400 Void 1400 Other: Total, Output Amount 400 600 # Voids Void 1 - Exam Breasts: Present: normal, Cardiovascular: Present: Regular rate Lungs: Present: Clear to auscultation, Normal air movement Abdomen: Present: normal appearance, soft Vulva: both: normal Uterus: Present: normal, firm, fundal height at umbilicus Extremities: Present: normal Deep Tendon Reflex Grade: Normal +2 Incision: Present: normal, dry, intact
[2018-12-11] MEDS: FEOSOL PO SCH (13:46)
[2018-12-11] MEDS: PRENATAL VITAMIN PO SCH (13:48)
--- NOTE | 2018-12-12 06:40 | Discharge Summary ---
Providers - Providers Date of Admission: 12/10/18 05:37 Date of discharge: 12/12/18 (pt desires d/c ) Attending physician: SIMRAN NEVAREZ 12/10/18 09:43 Consult to [facility] [CONS] Routine Reason For Exam: Primary care physician: SIMRAN NEVAREZ Hospitalization Reason for admission: section Delivery: Procedure: repeat low transverse Episiotomy: none Laceration: none Incision: normal, dry, intact Other procedures: none complications: none Discharge diagnosis: IUP at term delivered [place] baby: female Hospital course: uncomplicated repeat section pt awake caring for NB No c/o voiced VSS FF below umb Lochia scant Incision D&I Asymptomatic anemai Doing well s/p section. P: d/c today with instructions RTO 1 week postop care Condition at discharge: Good Disposition: DC-01 TO HOME OR SELFCARE - Discharge Diagnoses (1) delivery delivered Status: Acute Comment: RTO 1 week postop care Plan - Discharge Medications Prescriptions: Ferrous Sulfate [Feosol 325 MG tab] 325 mg PO BID #60 tablet Ibuprofen [Motrin 800 MG tab] 800 mg PO Q6H PRN #30 tablet PRN Reason: Pain oxyCODONE /ACETAMINOPHEN [Percocet 5/325 mg] 1 - 2 tab PO Q4H PRN #30 tablet PRN Reason: Pain, Moderate - Provider Discharge Summary Activity: routine, no sex for 6 weeks, no heavy lifting 4 weeks, no strenuous exercise Diet: routine Instructions: routine Additional instructions: [] Smoking cessation referral if applicable(refer to patient education folder for contact #) [] Refer to [facility] Booklet Call your doctor immediately for: * Fever > 100.5 * Heavy vaginal bleeding ( >1 pad per hour) * Severe persistent headache * Shortness of breath * Reddened, hot, painful area to leg or breast * Drainage or odor from incision. * Keep incision clean and dry at all times and follow doctor's instructions regarding bathing/showering - Follow up plan Follow up: SIMRAN NEVAREZ MD [Primary Care Provider] - 7 Days (Congratulations! Please call [phone] to schedule your postoperative visit in 1 week. Take medications as prescribed. Call with any concerns. Keep your incision clean and dry.)
[2018-12-12] MEDS: NORCO 5/325 PO PRN (08:42)
[2018-12-12] MEDS: FEOSOL PO SCH (09:44)
[2018-12-12] MEDS: PRENATAL VITAMIN PO SCH (09:44)
[2018-12-12 14:47] VITALS: BP 125/76
== END 2018-12-12 15:30 | disposition home or self-care (01) | DRG 766 ==
LOC: APU 05:37 → OB 10:10
PROVIDERS: ADMIT Obstetrics & Gynecology; ATTEND Obstetrics & Gynecology
PROC: 10D00Z1 Extraction of Products of Conception, Low, Open Approach (ICD-10-PCS; principal; 2018-12-10)
PROC: 3E0234Z Introduction of Serum, Toxoid and Vaccine into Muscle, Percutaneous Approach (ICD-10-PCS; 2018-12-11)
DX: O34.211 Maternal care for low transverse scar from previous cesarean delivery (principal); Z3A.39 39 weeks gestation of pregnancy; Z37.0 Single live birth; E66.01 Morbid (severe) obesity due to excess calories; Z71.3 Dietary counseling and surveillance; Z23 Encounter for immunization; O99.214 Obesity complicating childbirth; Z87.891 Personal history of nicotine dependence
CPT/HCPCS: 36415; 85014; 85018; 85025; 86850; 86900; 86901; 90715; 96360; 96365; 96374; G0378; A6250; C1765; J0690; J1885; J2370; J2590; J2765; J3010; J7120; J7121